=== PATIENT | female | born 1975 | race Caucasian/White ===

== ENCOUNTER 2018-10-24 14:47 | Emergency (ER) | payer MEDICAID ==
[~2018-10-24] VITALS: Ht 152.4 cm; Wt 54.4 kg
[2018-10-24 15:08] VITALS: BP_SYST 119
[2018-10-24] MEDS ORDERED: ONDANSETRON HCL 4 MG/2 ML VIAL IVP ONE (15:15)
[2018-10-24] MEDS ORDERED: MORPHINE 4 MG/ML INJ. SYRINGE IVP ONE ×2 (15:15→19:00)
[2018-10-24] MEDS ORDERED: NACL 0.9% 1,000 ML IV ONE (15:15)
[2018-10-24] MEDS ORDERED: SUMAtriptan SUCCINATE 6 MG/0.5 ML VIAL SUBCUT ONE (18:15)
[2018-10-24] MEDS ORDERED: LORazepam 2 MG/ML VIAL (FOR ER USE) IVP ONE (19:00)
[2018-10-24] MEDS ORDERED: PROCHLORPERAZINE EDISYLATE 10 MG/2 ML VIAL IVP ONE (19:30)
[2018-10-24 20:48] VITALS: BP_SYST 118
== END 2018-10-24 20:58 | disposition home or self-care (01) ==
LOC: SED 14:47
DX: G43.909 Migraine, unspecified, not intractable, without status migrainosus (principal); Z88.6 Allergy status to analgesic agent
CPT/HCPCS: 70450; 96372; 96374; 96375; 96376; 99284; J0780; J2060; J2270; J2405; J3030; J7030

== ENCOUNTER 2018-11-12 09:17 | Emergency (ER) | payer MEDICAID ==
[~2018-11-12] VITALS: Ht 152.4 cm; Wt 59.0 kg
[2018-11-12 09:29] VITALS: BP_SYST 113
--- NOTE | 2018-11-12 09:36 | NUR ---
Patient to ER bed 2 to gown for evaluation. Side rails up. Report given to Agustin SPICER.
--- NOTE | 2018-11-12 09:40 | NUR ---
Patient ambulatory to ED a/o x 4 with c/o KEYS and dizziness. Symptoms originated on 10/24/18. Seen by ED MD Jean-Baptiste and given morphine, ativan with some relief and dx with migraine headaches. Returns to ED with same problems. No recent trauma. Feels as though room is spinning.
[2018-11-12] MEDS ORDERED: ACETAMINOPHEN 500 MG TABLET PO ONE (09:45)
[2018-11-12] MEDS ORDERED: MECLIZINE HCL 25 MG TABLET (ANITVERT) PO ONE (09:45)
--- NOTE | 2018-11-12 09:45 | NUR ---
ED MD Mcdonald bedside evaluating patient.
[2018-11-12] MEDS ORDERED: ONDANSETRON 4 MG ODT TAB PO ONE (11:00)
[2018-11-12] MEDS ORDERED: fentaNYL CITRATE/PF 100 MCG/2 ML AMP IM ONE (11:00)
--- NOTE | 2018-11-12 11:36 | NUR ---
Pt returned from radiology via [place] in stable condition
--- NOTE | 2018-11-12 12:04 | NUR ---
Per ER Dr. Mcdonald, no urinalysis required. Lab notified. Urine sample to be disregarded.
[2018-11-12 13:49] VITALS: BP_SYST 119
--- NOTE | 2018-11-12 13:49 | NUR ---
Patient given written and verbal discharge instructions and verbalizes understanding. ER MD discussed with patient the results and treatment provided. Patient in stable condition. ID arm band removed. Rx of Tramadol given. Patient educated on pain management and to follow up with PMD. Pain Scale 3/10. Opportunity for questions provided and answered. Medication side effect fact sheet provided.
== END 2018-11-12 13:49 | disposition home or self-care (01) ==
LOC: SED 09:17
DX: G44.209 Tension-type headache, unspecified, not intractable (principal); Z88.6 Allergy status to analgesic agent; Z91.041 Radiographic dye allergy status; Z91.018 Allergy to other foods
CPT/HCPCS: 70150; 96372; 99284; J3010; J8597; Q0162

== ENCOUNTER 2021-07-09 17:57 | Emergency (ER) | payer MEDICAID, SELFPAY ==
[~2021-07-09] VITALS: Ht 152.4 cm; Wt 59.0 kg
[2021-07-09 19:37] VITALS: BP_SYST 104
[2021-07-09 20:02] VITALS: BP_SYST 104
[2021-07-09] MEDS ORDERED: HEPARIN SODIUM,PORCINE 5,000 UNITS/ML VIAL ONE (21:16)
== END 2021-07-09 20:14 | disposition left against medical advice (07) ==
LOC: SED 17:57
DX: N23 Unspecified renal colic (principal); Z91.02 Food additives allergy status; Z91.09 Other allergy status, other than to drugs and biological substances; Z88.6 Allergy status to analgesic agent
CPT/HCPCS: 99281; J1644; 99282